=== PATIENT | male | born 1990 | race Caucasian/White ===

== ENCOUNTER 2017-01-11 16:30 | Emergency (ER) | payer MEDICAID, OTHER ==
[~2017-01-11] VITALS: Ht 172.7 cm; Wt 79.0 kg
[2017-01-11 16:34] VITALS: Ht 172.7 cm; Wt 79.0 kg
[2017-01-11] MEDS ORDERED: BEN25 PO (17:08)
[2017-01-11] MEDS ORDERED: CALAMINE TOP (17:08)
[2017-01-11] MEDS ORDERED: PRED20TA PO (17:08)
[2017-01-11] MEDS ORDERED: HC30CR25 TOP (17:09)
--- NOTE | 2017-01-11 17:17 | ERD ---
ER Documentation Chief Complaint Date/Time DATE: 01/11/17 TIME: 17:12 Chief Complaint RASH TO ARMS AND NECK X 3 DAYS HPI Patient is a 26-year-old male who presents to the ED with itching and rash 5 days. Patient does not have any past medical history. Denies fever or chills. He states that he was at someone's house and went in their backyard and touched a plan. He states that he believes it is poison oak/evie. He states that the rash is located on his arms leg and on the top part of his genitals. He states that it is itchy and painful. Denies headache or dizziness. Denies shortness of breath or difficulty breathing. Denies tongue or lip swelling. Denies chest pain, cough, shortness of breath. He has taken Benadryl for his symptoms which is helped very minimally. No other complaints per ROS All systems reviewed and are negative except as per history of present illness. Medications Home Meds Active Scripts Hydrocortisone* Topical (Hydrocortisone* Topical) 2.5%-28.3 Gm Cream..g., 1 APPLIC TOP BID, #1 TUB Prov:KALEB JOHNSON PA-C 01/11/17 Calamine* (Calamine*) 120 Ml Lotion, 1 APPLIC TOP Q4H for RASH for 7 Days, EA Prov:KALEB JOHNSON PA-C 01/11/17 Diphenhydramine Hcl* (Benadryl*) 25 Mg Cap, 25 MG PO Q6, #30 CAP Prov:KALEB JOHNSON PA-C 01/11/17 Prednisone* (Prednisone*) 20 Mg Tab, 60 MG PO DAILY for 9 Days, TAB 60mg/day PO for days 1-3, then 40mg/day PO for days 4-6, then 20mg/day PO for days 7-9. Prov:KALEB JOHNSON PA-C 01/11/17 PMhx/Soc Medical and Surgical Hx: pt denies Medical Hx, pt denies Surgical Hx History of Surgery: No Anesthesia Reaction: No Hx Neurological Disorder: No Hx Respiratory Disorders: No Hx Cardiac Disorders: No Hx Psychiatric Problems: No Hx Miscellaneous Medical Probl: No Hx Alcohol Use: No Hx Substance Use: No Hx Tobacco Use: No FmHx Family History: No coronary disease, No diabetes, No other Physical Exam Vitals Vital Signs Date Time Temp Pulse Resp B/P Pulse Ox O2 Delivery O2 Flow Rate FiO2 01/11/17 16:34 98.5 78 18 133/77 98 Physical Exam GENERAL: Well-developed, well-nourished male. Appears in no acute distress. HEAD: Normocephalic, atraumatic. EYES: Pupils are equally reactive bilaterally. EOMs grossly intact. No conjunctival erythema. ENT: Moist mucous membranes. No uvula deviation. No kissing tonsils. No exudates. NECK: Supple. No lymphadenopathy or thyromegaly. No meningismus. negative kernig. negative brudinski. LUNG: Clear to auscultation bilaterally. No rhonchi, wheezing, rales or coarse breath sounds. HEART: Regular rate and rhythm. No murmurs, rubs or gallops. Extremities: Equal pulses bilaterally. No peripheral clubbing, cyanosis or edema. No unilateral leg swelling. NEUROLOGIC: Alert and oriented. Moving all four extremities. 5/5 strength in all extremities. Normal speech. Steady gait. SKIN: Normal color. Warm and dry. Vesicular rash on bilateral arms, suprapubic area and inner thighs. No drainage. No surrounding erythema. Capillary refill < 2 seconds Procedures/MDM ER COURSE: I kept the patient and/or family informed of laboratory and diagnostic imaging results throughout the emergency room course. MEDICAL DECISION MAKING: This is a 26-year-old male who presents with rash 4 days. Vital signs were reviewed. Patient is afebrile. Patient is not hypoxic. Patient is not toxic or ill-appearing. Patient's rash is likely poison oak versus poison evie dermatitis. Patient does not show signs of angioedema or anaphylaxis. Low suspicion for necrotizing fasciitis, SJS, toxic epidermal necrolysis, Kawasaki, erythema multiforme, gangrene, scarlet fever, meningococcemia, sepsis, anaphylaxis, sepsis, deep space infection, or foreign body. DISCHARGE: At this time, patient is stable for discharge and outpatient management with no new complaints during the ER course. Patient was sent home with hydrocortisone, calamine, Benadryl and prednisone taper.. Patient will be discharged home with instructions to recheck for new or worsening symptoms such as fever, nausea, weakness, LOC and to follow up with primary care in the next 1-2 days. Patient was advised to return to the ER for any new or worsening symptoms. Plan was discussed and patient and/or family understands and agrees. Home instructions were given. Departure Diagnosis: Primary Impression: Poison oak dermatitis Condition: Stable Patient Instructions: Poison Evie Dermatitis Additional Instructions: Llame al doctor MAANA y nathaniel veronica JAMEE PARA DENTRO DE 1-2 HAYDEN.Dgale a la secretaria que nosotros le instruimos hacer esta jamee.Avise o llame si simmons condicin se empeora antes de la jamee. Regresa aqui si peor o no mejor. KALEB JOHNSON PA-C January 11, 2017 17:17
[2017-01-11] MEDS ORDERED: TRIA15OI9 TOP (17:18)
== END 2017-01-11 17:30 | disposition home or self-care (01) ==
LOC: FTE 16:30
DX: L23.7 Allergic contact dermatitis due to plants, except food (principal)